=== PATIENT | female | born 2000 | race Caucasian/White ===

== ENCOUNTER 2018-01-12 19:55 | Emergency (ER) | payer OTHER ==
--- NOTE | 2018-01-12 20:47 | UC ---
Throat Pain/Nasal Randal HPI - HPI Summary HPI Summary: 17-year-old female presents with 2 day history of sore throat. She also states that yesterday she had some intermittent midsternal chest pain that began around 11 AM and lasted into the evening. Described the pain as heartburn. Also noted some pain radiating down her left arm. She's had no further episodes today. Denies fever, chills, nasal congestion, nasal drainage, ear pain, shortness of breath, dizziness, weakness, palpitations, abdominal pain, nausea, or vomiting. - History of Current Complaint Chief Complaint: UCRespiratory Stated Complaint: SORE THROAT,FEVER,HEADACHE Time Seen by Provider: 01/12/18 20:29 Hx Obtained From: Patient Hx Last Menstrual Period: 2 wks ago Onset/Duration: Gradual Onset, Lasting Days - 2 Severity: Moderate Pain Intensity: 6 Cough: None Associated Signs & Symptoms: Negative: Dysphagia, Hoarseness, Nasal Discharge, Fever, Vomiting, Rash - Allergies/Home Medications Allergies/Adverse Reactions: Allergies Allergy/AdvReac Type Severity Reaction Status Date / Time No Known Allergies Allergy Verified 01/12/18 20:07 Home Medications: Home Medications Control ? Name 1 tab PO DAILY 01/12/18 [History] PMH/Surg Hx/FS Hx/Imm Hx Previously Healthy: Yes - denies significant past medical history - Surgical History Surgical History: None - Family History Known Family History: Negative: Cardiac Disease, Hypertension Family History: Noncontributory - Social History Occupation: Student Lives: With Family Alcohol Use: None Substance Use Type: None Smoking Status (MU): Never Smoked Tobacco Review of Systems Constitutional: Negative Skin: Negative Eyes: Negative ENT: Sore Throat Respiratory: Negative Cardiovascular: Chest Pain Gastrointestinal: Other - Heartburn Is Patient Immunocompromised?: No All Other Systems Reviewed And Are Negative: Yes Physical Exam Triage Information Reviewed: Yes Appearance: Well-Appearing, No Pain Distress, Well-Nourished Vital Signs: Initial Vital Signs Temp 98.4 F 01/12/18 20:05 Pulse 87 01/12/18 20:05 Resp 12 01/12/18 20:05 BP 147/79 01/12/18 20:05 Pulse Ox 100 01/12/18 20:05 Vital Signs Reviewed: Yes Eyes: Positive: Conjunctiva Clear. Negative: Discharge ENT: Positive: Hearing grossly normal, Pharyngeal erythema - Mild, TMs normal, Uvula midline. Negative: Nasal congestion, Nasal drainage, Tonsillar swelling, Tonsillar exudate, Trismus, Muffled voice, Hoarse voice, Sinus tenderness Neck: Positive: Supple, Nontender, No Lymphadenopathy Respiratory: Positive: Chest non-tender, Lungs clear, Normal breath sounds, No respiratory distress Cardiovascular: Positive: RRR, No Murmur, Pulses Normal, Brisk Capillary Refill Abdomen Description: Positive: Nontender, No Organomegaly, Soft. Negative: Distended, Guarding Neurological: Positive: Alert Skin Exam: Normal Diagnostics - EKG Cardiac Rate: NL - Rate 67 Cardiac Rhythm: Sinus: Normal Ectopy: None ST Segment: Normal Throat Pain/Nasal Course/Dx - Course Course Of Treatment: 17 year old female with 2 day history of sore throat and reports of intermittent "heartburn" with pain radiating to left arm. Exam unremarkable except for some mild pharyngeal erythema. Rapid strep negative. 12 lead EKG NSR. Recommend symptomatic treatment for viral pharyngitis. Follow up with PCP should symptoms persist. - Differential Dx/Diagnosis Differential Diagnosis/HQI/PQRI: Mononucleosis, Pharyngitis, Tonsillitis, URI Provider Diagnoses: Viral pharyngitis Discharge - Sign-Out/Discharge Documenting (check all that apply): Patient Departure All imaging exams completed and their final reports reviewed: No Studies - Discharge Plan Condition: Stable Disposition: HOME Patient Education Materials: Pharyngitis (ED) Referrals: [facility] [Primary Care Provider] - Additional Instructions: The rapid strep test was performed in the clinic today was negative. I suspect that your symptoms are from a viral infection. Viral infections. [place] over 7-10 days. The EKG performed tonight was also normal. Be sure to drink plenty of fluids and stay well hydrated. Use salt water gargles several times during the day to help with the sore throat. Take acetaminophen (Tylenol) or ibuprofen (Advil, Motrin) according to directions as needed for any pain or fever. You may also use Chloraseptic spray or Cepacol lozenges for some temporary pain relief. Your blood pressure was elevated today in the clinic. It is recommended that you follow up within 4 weeks to have this rechecked. You can have this done at the [facility]. Seek immediate medical attention if you have a persistent fever greater than 100.5 F despite taking acetaminophen or ibuprofen, you are unable to swallow, have any difficulty breathing, your chest pain returns, or you have any worsening of symptoms. - Billing Disposition and Condition Condition: STABLE Disposition: Home
[2018-01-12 21:28] VITALS: BP 124/78
== END 2018-01-12 21:28 | disposition home or self-care (01) ==
LOC: UCEAST 19:55
DX: J02.8 Acute pharyngitis due to other specified organisms (principal); R12 Heartburn; Z79.3 Long term (current) use of hormonal contraceptives
CPT/HCPCS: 87651; 93005; 99201; G0463

== ENCOUNTER 2018-03-26 10:05 | Emergency (ER) | payer OTHER ==
[2018-03-26 10:20] VITALS: BP 132/62
--- NOTE | 2018-03-26 11:36 | ED ---
Throat Pain/Nasal Congestion - HPI Summary HPI Summary: Patient presents with URI symptoms over the past 3 days. She reports she has a sore throat, dry cough and feels rundown in general. Last night she experienced fevers alternating with chillshighest fever was 100.4 by mouth. She also reports lower extremity achiness last night. She denies headache, neck stiffness, ear pain, nasal congestion, difficulty breathing or swallowing, abdominal pain, nausea, vomiting, diarrhea, rash, numbness, tingling, weakness. She tried ibuprofen or Tylenol this morning which seems to help her symptoms somewhat and has been drinking warm liquids which helps her sore throat. She does have a history of mono reports it was pretty mild. Does not recall if these symptoms today are the same. Reports she has been around someone with mono recently. 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 - History of Current Complaint Chief Complaint: UCRespiratory Time Seen by Provider: 03/26/18 10:08 Hx Obtained From: Patient - Allergies/Home Medications Allergies/Adverse Reactions: Allergies Allergy/AdvReac Type Severity Reaction Status Date / Time No Known Allergies Allergy Verified 03/26/18 10:20 Home Medications: Home Medications Acetaminophen TAB* [Tylenol TAB*] 325 mg PO Q4H PRN 03/26/18 [History Confirmed 03/26/18] PMH/Surg Hx/FS Hx/Imm Hx Previously Healthy: Yes Endocrine/Hematology History: Denies: Autoimmune Disease Respiratory History: Denies: Hx Asthma, Hx Pneumonia Neurological History: Denies: Hx Headaches Infectious Disease History: No Infectious Disease History: Reports: History Other Infectious Disease - mononucleosis Denies: Traveled Outside the [place] in Last 30 Days - Family History Known Family History: Negative: Cardiac Disease, Hypertension - Social History Occupation: Student - [employer] Lives: Dormitory/Roommates Alcohol Use: None Hx Substance Use: No Substance Use Type: Reports: None Hx Tobacco Use: No Smoking Status (MU): Never Smoked Tobacco Review of Systems Positive: Fever, Chills, Fatigue Eyes: Negative Positive: Sore Throat Cardiovascular: Negative Positive: Cough. Negative: Shortness Of Breath Gastrointestinal: Negative Positive: no symptoms reported Positive: Myalgia Skin: Negative Neurological: Negative Psychological: Normal All Other Systems Reviewed And Are Negative: Yes Physical Exam Triage Information Reviewed: Yes Vital Signs On Initial Exam: Initial Vitals Temp Pulse Resp BP Pulse Ox 97.5 F 104 14 132/62 97 03/26/18 10:13 03/26/18 10:13 03/26/18 10:13 03/26/18 10:13 03/26/18 10:13 Vital Signs Reviewed: Yes Appearance: Positive: Well-Appearing, No Pain Distress, Well-Nourished Skin: Positive: Warm, Skin Color Reflects Adequate Perfusion, Dry - no rash Head/Face: Positive: Normal Head/Face Inspection Eyes: Positive: Normal, EOMI, LIAN, Conjunctiva Clear. Negative: Conjunctiva Inflammed, Discharge ENT: Positive: Normal ENT inspection, Hearing grossly normal, Pharynx normal - mucosa moist - mild injection + cobblestoning- no lesions, Nasal congestion - mild, TMs normal, Tonsillar swelling - +2-3 - no erythema, no exudate, Uvula midline. Negative: Nasal drainage, Tonsillar exudate, Trismus, Muffled voice, Hoarse voice, Sinus tenderness Neck: Positive: Supple, Nontender, No Lymphadenopathy Respiratory/Lung Sounds: Positive: Clear to Auscultation, Breath Sounds Present. Negative: Rales, Rhonchi, Wheezes Cardiovascular: Positive: Normal, RRR, S1, S2. Negative: Murmur, Rub Abdomen Description: Positive: Nontender, No Organomegaly, Soft Bowel Sounds: Positive: Present Musculoskeletal: Positive: Normal, Strength/ROM Intact Neurological: Positive: Normal, Sensory/Motor Intact, Alert, Oriented to Person Place, Time, CN Intact II-III, Facial Symmetry, Speech Normal Psychiatric: Positive: Normal Diagnostics - Vital Signs Vital Signs Temp Pulse Resp BP Pulse Ox 03/26/18 10:13 97.5 F 104 14 132/62 97 - Laboratory Lab Results: Lab Results 03/26/18 Range/Units 10:26 Group A Strep Rapid Negative (Negative) Lab Statement: Any lab studies that have been ordered have been reviewed, and results considered in the medical decision making process. EENT Course/Dx - Course Course Of Treatment: Rapid strep: neg. Discussed we do not have rapid mono testing but she could have this done at [facility] if sx persist. She is also out of the window of tx for influenza so testing was offered but not performed. Reviewed tx and f/u care as well as danger s/sx of when to seek medical attention. - Diagnoses Provider Diagnoses: Pharyngitis, URI with cough and congestion Discharge - Sign-Out/Discharge Documenting (check all that apply): Patient Departure All imaging exams completed and their final reports reviewed: No Studies - Discharge Plan Condition: Stable Disposition: HOME Patient Education Materials: Pharyngitis (ED), Upper Respiratory Infection (ED) Forms: *School Release Referrals: [facility] [Primary Care Provider] - Additional Instructions: Nasal wash (netti pot or saline spray) & salt water throat gargles 2 x day Drink you body weight in ounces of water every day Sleep 8+ hours per night Avoid Dairy and sugar Hot herbal/decaf tea with lemon & honey Chicken broth (preferably organic, free range chicken) Humidifier in house, but especially near bed at night Keep home temperature at 68F or less to reduce dryness Use cough drops/throat lozenges Try a facial steam with or without eucalyptus essential oil or Riaz's Vapor rub for congestion Avoid smoke, candles, perfumes, colognes, scented soaps/detergents , air fresheners and cleaning chemicals as these can cause airway irritation and trigger coughing Start Vitamin D3 5000iu and Vitamin C 1000mg daily during illness *If symptoms persist beyond 7-14 days, follow-up with PCP at [facility] *If worse in the meantime (ie high fever, headache, neck stiffness, intractable vomiting/diarrhea/ab pain, difficulty breathing or swallowing), go to the ED - Billing Disposition and Condition Condition: STABLE Disposition: Home
== END 2018-03-26 11:50 | disposition home or self-care (01) ==
LOC: UCEAST 10:05
DX: J02.9 Acute pharyngitis, unspecified (principal); J06.9 Acute upper respiratory infection, unspecified; R05 Cough; R09.81 Nasal congestion
CPT/HCPCS: 87651; 99211; G0463

== ENCOUNTER 2018-04-26 17:18 | Emergency (ER) | payer OTHER ==
[2018-04-26 17:30] VITALS: BP 109/58
--- NOTE | 2018-04-26 17:47 | UC ---
Throat Pain/Nasal Randal HPI - HPI Summary HPI Summary: Pt present to patient presents to urgent care reporting reporting a sore throat that started yesterday. Patient states she also has fatigue. Patient without any other complaints. Patient without ear pain sinus congestion. No cough. No fever, chills, rash. Patient states she is finishing a course of Augmentin that she was prescribed for frontal sinus infection. Patient has 2 days left. Patient states she wanted to make sure she didn't have the flu because last year she had the filling came "2" and cervical give her Tamiflu. Patient denies sick contacts. Patient does attend [employer] and resides in an apartment. No sick contacts in her living space. Patient did not get the flu vaccine this year. Patient is not inial, otherwise. Patient took DayQuil this morning and nothing since. Patient's medications reviewed this visit. Patient states she is not . - History of Current Complaint Chief Complaint: UCGeneralIllness Stated Complaint: SORE THROAT Time Seen by Provider: 04/26/18 17:30 Hx Obtained From: Patient Hx Last Menstrual Period: March 29, 2018 ?: No Onset/Duration: Gradual Onset Severity: Mild Pain Intensity: 4 Pain Scale Used: 0-10 Numeric - Allergies/Home Medications Allergies/Adverse Reactions: Allergies Allergy/AdvReac Type Severity Reaction Status Date / Time No Known Allergies Allergy Verified 03/26/18 10:20 Home Medications: Home Medications Amoxicillin 04/26/18 [History] Dm/Pseudoephed/Acetaminophen [Day-Time Cold-Flu Softgel] 04/26/18 [History] Ibuprofen TAB* [Advil TAB*] 04/26/18 [History] PMH/Surg Hx/FS Hx/Imm Hx Previously Healthy: Yes - Surgical History Surgical History: None Surgery Procedure, Year, and Place: wisdom teeth out April 05, 2018 - Family History Known Family History: Positive: Non-Contributory Negative: Cardiac Disease, Hypertension - Social History Occupation: Student Lives: Dormitory/Roommates Alcohol Use: None Substance Use Type: None Smoking Status (MU): Never Smoked Tobacco Review of Systems All Other Systems Reviewed And Are Negative: Yes Constitutional: Positive: Fatigue ENT: Positive: Sore Throat, Other - PND Physical Exam - Summary Physical Exam Summary: Vital Signs Reviewed: Yes A+Ox3, no distress Eyes: Conjunctiva Clear, LIAN. EOM intact and full ENT: Hearing grossly normal TM x 2 clear, turbinates mildly boggy, + PND, mmoist, uvula midline, no exudate, no erythema Neck: Positive: Supple Respiratory: Positive: No respiratory distress, No accessory muscle use + CTA throughout no w/r Cardiovascular: RRR nl s1, s2 no m/r CBT <2 sec abd soft + BS nt/nd no guarding, no distension Musculoskeletal Exam: CURRY x 4 without difficulty Strength Intact, ROM Intact Neurological: Positive: Alert, + sensation throughout Psychological: Positive: Normal Response To Family Skin: Positive: no rash, no ecchymosis Triage Information Reviewed: Yes Vital Signs: Initial Vital Signs Temp 98.1 F 04/26/18 17:24 Pulse 76 04/26/18 17:24 Resp 16 04/26/18 17:24 BP 109/58 04/26/18 17:24 Pulse Ox 99 04/26/18 17:24 Throat Pain/Nasal Course/Dx - Course Course Of Treatment: Patient presents to urgent care reporting 24 hours of sore throat. Patient states she also has fatigue. No fevers or chills. Patient took DayQuil this morning. Patient states she like to be checked for flu because Seth she had the flu became "too late "so can get Tamiflu. Patient denies nausea vomiting. Patient has been able to eat and drink without difficulty. No rash. Patient's vital signs are stable. On exam patient is turbinates boggy with mild postnasal drip. No exudate or erythema. Uvula midline. Rapid strep is negative. We'll check rapid flu. If this is negative will likely prescribe Flonase for nasal congestion. Supportive care. Secretion precaution. Patient comfortable in agreement with plan. - Differential Dx/Diagnosis Provider Diagnosis: Pharyngitis, Upper respiratory infection Discharge - Sign-Out/Discharge Documenting (check all that apply): Patient Departure All imaging exams completed and their final reports reviewed: No Studies - Discharge Plan Condition: Stable Disposition: HOME Prescriptions: Fluticasone NASAL SPRAY 50MCG* [Flonase NASAL SPRAY 50MCG*] 2 spray BOTH NARES DAILY #1 btl Patient Education Materials: Pharyngitis (ED), Upper Respiratory Infection (ED) Referrals: [facility] [Provider Group] No Primary Care Phys,NOPCP [Primary Care Provider] - Additional Instructions: - Stay well hydrated. Drink plenty of non-alcoholic, non-caffinated beverages. - Alternate ibuprofen (Advil, Motrin) 600mg and Tylenol every 3 hours for pain or fever. Take with food. Do NOT take for more than 4-5 days. - These infections are spread by secretions - do NOT share eating or drinking utensils - clean items you share with other people such as cell phones, computer mouse, TV remote, computer tablets,etc. Once you start to feel better, change your toothbrush and your pillowcase. - get plenty of restful sleep - humidify the air in the room where you sleep - boil water, run a hot steam shower, vaporizer, cups of water by heat register - okay to take over the counter decongestant and cough medication - use nasal spray as instructed - gargle with warm salt water 2-3 times a day - contact your doctor or return with questions or concerns - Billing Disposition and Condition Condition: STABLE Disposition: Home
== END 2018-04-26 18:30 | disposition home or self-care (01) ==
LOC: UCEAST 17:18
DX: J02.9 Acute pharyngitis, unspecified (principal); J06.9 Acute upper respiratory infection, unspecified
CPT/HCPCS: 87651; 99211; G0463

== ENCOUNTER 2018-05-24 15:46 | Emergency (ER) | payer OTHER ==
[2018-05-24 15:57] VITALS: BP 111/68
--- NOTE | 2018-05-24 16:03 | UC ---
Respiratory Complaint HPI - HPI Summary HPI Summary: 18 yo female presents accompanied by mother with cough and wheezing. She tells me that her cough has been present for about a month alternating severity from mild to severe. Is productive at times with clear/yellow phlegm. She has noticed some wheezing over the last week. She also plays soccer and when she is doing sprints outside she notices SOB and increased wheezing that causes her to slow down or stop running altogether. She has a history of asthma as a child, but has not had any issues since. She has been taking mucinex OTC with no change in her symptoms. Denies fever, chills, sinus symptoms, sore throat, chest pain. - History of Current Complaint Chief Complaint: UCRespiratory Stated Complaint: FLU/COLD SYMP Time Seen by Provider: 05/24/18 16:03 Hx Obtained From: Patient Hx Last Menstrual Period: NOW Onset/Duration: Gradual Onset Severity Currently: None Pain Intensity: 0 Character: Cough: Productive - Allergies/Home Medications Allergies/Adverse Reactions: Allergies Allergy/AdvReac Type Severity Reaction Status Date / Time No Known Allergies Allergy Verified 05/24/18 15:57 Home Medications: Home Medications guaiFENesin ER TAB [Mucinex*] 600 mg PO PRN 05/24/18 [History] PMH/Surg Hx/FS Hx/Imm Hx - Additional Past Medical History Additional PMH: Asthma as a child - Surgical History Surgical History: Yes Surgery Procedure, Year, and Place: wisdom teeth out April 05, 2018 - Family History Known Family History: Positive: Non-Contributory Negative: Cardiac Disease, Hypertension - Social History Occupation: Student Lives: Dormitory/Roommates Alcohol Use: None Substance Use Type: None Smoking Status (MU): Never Smoked Tobacco Review of Systems All Other Systems Reviewed And Are Negative: Yes Constitutional: Positive: Negative Skin: Positive: Negative Eyes: Positive: Negative ENT: Positive: Negative Respiratory: Positive: Shortness Of Breath, Cough Cardiovascular: Positive: Negative Gastrointestinal: Positive: Negative Neurovascular: Positive: Negative Neurological: Positive: Negative Psychological: Positive: Negative Physical Exam - Summary Physical Exam Summary: GENERAL: NAD. WDWN. No pain distress. SKIN: No rashes, sores, lesions, or open wounds. HEENT: Head: AT/NC Eyes: Conjunctiva clear without inflammation or discharge. Ears: Hearing grossly normal. TMs intact, no bulging, erythema, or edema. Nose: Nasal mucosa pink and moist. NTTP maxillary and frontal sinus. Throat: Posterior oropharynx without exudates, erythema, or tonsillar enlargement. Uvula midline. NECK: Supple. Nontender. No lymphadenopathy. CHEST: Left lung Mild wheezing throughout with rales at base. No accessory muscle use. Breathing comfortably and in no distress. CV: RRR. Without m/r/g. Pulses intact. Cap refill <2seconds NEURO: Alert. PSYCH: Age appropriate behavior. Triage Information Reviewed: Yes Vital Signs: Initial Vital Signs Temp 97.4 F 05/24/18 15:54 Pulse 80 05/24/18 15:54 Resp 16 05/24/18 15:54 BP 111/68 05/24/18 15:54 Pulse Ox 98 05/24/18 15:54 Vital Signs Reviewed: Yes Diagnostic Evaluation - Laboratory O2 Sat by Pulse Oximetry: 98 Respiratory Course/Dx - Course Course Of Treatment: CXR: IMPRESSION: No active cardiopulmonary disease is noted. Duoneb: Mild improvement s/p. Pt states lungs feel less tight and easier to take a deep breath. On exam, LLL still with rales/coarse breath sounds. She has not been on any antibiotics for this. Will treat her with zpak to cover for PNA and albuterol inhaler to use prn wheezing/sob. If her symptoms do not improve with 12-14 days to be rechecked. - Differential Dx/Diagnosis Provider Diagnosis: Cough, Wheezing Discharge - Sign-Out/Discharge Documenting (check all that apply): Patient Departure All imaging exams completed and their final reports reviewed: Yes - Discharge Plan Condition: Stable Disposition: HOME Prescriptions: Albuterol HFA INHALER* [Ventolin HFA Inhaler*] 1 - 2 puff INH Q6H PRN #1 mdi PRN Reason: Wheezing Azithromycin TAB* [Zithromax TAB (Z-EULALIO) 250 mg #6 tabs] 2 tab PO .TODAY, THEN 1 DAILY #1 eulalio Patient Education Materials: Pneumonia (ED), Acute Cough (ED) Referrals: No Primary Care Phys,NOPCP [Primary Care Provider] - Additional Instructions: If you develop a fever, shortness of breath, chest pain, new or worsening symptoms - please call your PCP or go to the ED. Your Chest X-Ray did not show any signs of pneumonia, but your lung exam and prolonged symptoms are suspicious for pneumonia - therefore I am treating you with an antibiotic that will cover you for this. --- If your symptoms do not improve in the next 12-14 days, please be rechecked. - Billing Disposition and Condition Condition: STABLE Disposition: Home
[2018-05-24] MEDS ORDERED: Albuterol/Ipratropium NEB.SOL* Albuterol 2.5 MG/Ipratropium 0.5 MG 3 ML INH ONE (16:12)
== END 2018-05-24 17:12 | disposition home or self-care (01) ==
LOC: UCEAST 15:46
DX: R05 Cough (principal); J45.909 Unspecified asthma, uncomplicated
CPT/HCPCS: 71046; 99212; A9270-GY; G0463

== ENCOUNTER 2018-11-29 12:29 | Emergency (ER) | payer OTHER ==
--- NOTE | 2018-11-29 14:07 | ED ---
Throat Pain/Nasal Congestion - HPI Summary HPI Summary: 18 year old female with no significant medical history presents with a sore throat for 3 days. Patient is having trouble swallowing and has some neck tenderness and headache. Patient has taken 400mg tylenol for throat pain and took her last dose last night. Patient states it didnt really help the pain Patient denies cough. Patient was diagnosed with strep throat a week ago and completed abx treatment. Days after completing treatment, patient began to have another sore throat. Patient has not had any sick contacts. Patient denies allergies. Patient is not sexually active and has a regular menstrual cycle. - History of Current Complaint Chief Complaint: EDThroatPain Time Seen by Provider: 11/29/18 13:57 - Allergies/Home Medications Allergies/Adverse Reactions: Allergies Allergy/AdvReac Type Severity Reaction Status Date / Time No Known Allergies Allergy Unverified 11/29/18 12:40 PMH/Surg Hx/FS Hx/Imm Hx Endocrine/Hematology History: Denies: Hx Anticoagulant Therapy Cardiovascular History: Denies: Hx Hypertension Respiratory History: Denies: Hx Asthma, Hx Pneumonia Neurological History: Denies: Hx Headaches - Surgical History Surgery Procedure, Year, and Place: wisdom teeth out April 05, 2018 Infectious Disease History: No Infectious Disease History: Reports: History Other Infectious Disease - mononucleosis Denies: Traveled Outside the [place] in Last 30 Days - Family History Known Family History: Positive: Non-Contributory Negative: Cardiac Disease, Hypertension - Social History Alcohol Use: None Hx Substance Use: No Substance Use Type: Reports: None Hx Tobacco Use: No Smoking Status (MU): Never Smoked Tobacco Review of Systems Negative: Fever Positive: Sore Throat, Nasal Discharge Negative: Shortness Of Breath All Other Systems Reviewed And Are Negative: Yes Physical Exam Triage Information Reviewed: Yes Vital Signs On Initial Exam: Initial Vitals Temp Pulse Resp BP Pulse Ox 98.4 F 75 16 119/77 98 11/29/18 12:37 11/29/18 12:37 11/29/18 12:37 11/29/18 12:37 11/29/18 12:37 Vital Signs Reviewed: Yes Appearance: Positive: Well-Appearing Skin: Positive: Warm, Dry Head/Face: Positive: Normal Head/Face Inspection Eyes: Positive: Normal, Conjunctiva Clear ENT: Positive: Pharyngeal erythema, Tonsillar swelling, Sinus tenderness, Other - soft palate symmetric. Negative: Tonsillar exudate, Trismus, Muffled voice Neck: Positive: Supple, Nontender, No Lymphadenopathy Respiratory/Lung Sounds: Positive: Clear to Auscultation, Breath Sounds Present Cardiovascular: Positive: Normal, RRR Abdomen Description: Positive: Nontender, Soft Bowel Sounds: Positive: Present Musculoskeletal: Positive: Normal Neurological: Positive: Normal Psychiatric: Positive: Normal Diagnostics - Vital Signs Vital Signs Temp Pulse Resp BP Pulse Ox 11/29/18 12:37 98.4 F 75 16 119/77 98 - Laboratory Lab Statement: Any lab studies that have been ordered have been reviewed, and results considered in the medical decision making process. EENT Course/Dx - Course Course Of Treatment: 18 year old female with no significant medical history presents with a sore throat for 3 days. Patient is having trouble swallowing and has some neck tenderness and headache. Patient has taken 400mg tylenol for throat pain and took her last dose last night. Patient states it didnt really help the pain Patient denies cough. Patient was diagnosed with strep throat a week ago and completed abx treatment. Days after completing treatment, patient began to have another sore throat. Patient has not had any sick contacts. Patient denies allergies. Patient is not sexually active and has a regular menstrual cycle. Exam phaynx enlarged tonsils with erythema. Rapid monospot was negative. Patient advised on supportive care and given steroids for throat pain. patient understand and agrees with plan. - Differential Diagnoses Differential Diagnoses: Pharyngitis, Tonsilitis, URI/Bronchitis - Diagnoses Provider Diagnoses: Pharyngitis Discharge - Sign-Out/Discharge Documenting (check all that apply): Patient Departure Patient Received Moderate/Deep Sedation with Procedure: No - Discharge Plan Condition: Good Disposition: HOME Prescriptions: Dexamethasone TAB* [Decadron TAB*] 4 mg PO DAILY #4 tab Patient Education Materials: Pharyngitis (ED) Referrals: No Primary Care Phys,NOPCP [Primary Care Provider] - Additional Instructions: Take steroid once a day for 4 days Take Tylenol or ibuprofen for pain every 6 hours Can gargle salt water Can use cough drops or products such as cloraseptic spray Return to ED if develop any new or worsening symptoms - Billing Disposition and Condition Condition: GOOD Disposition: Home
[2018-11-29] MEDS ORDERED: Dexamethasone TAB* 4 MG PO ONE (14:32)
[2018-11-29 14:50] VITALS: BP 105/67
== END 2018-11-29 14:49 | disposition home or self-care (01) ==
LOC: EDUNIT# → ED 12:29
DX: J02.9 Acute pharyngitis, unspecified (principal)
CPT/HCPCS: 36415; 86308; 99282; J8540